=== PATIENT | female | born 1985 | race African-American/Black ===

== ENCOUNTER → 2022-07-19 | Emergency (ER) | payer OTHER ==
[~2022-07-19] VITALS: Ht 172.7 cm; Wt 72.6 kg
== END | disposition home or self-care (01) ==
LOC: ER 07:40
DX: R53.81 Other malaise (principal)

== ENCOUNTER 2022-11-28 11:53 | Emergency (ER) | payer OTHER ==
[~2022-11-28] VITALS: Ht 172.7 cm; Wt 76.2 kg
== END 2022-11-28 17:48 | disposition home or self-care (01) ==
LOC: ER 11:53
DX: J06.9 Acute upper respiratory infection, unspecified (principal); Z20.822 Contact with and (suspected) exposure to COVID-19

== ENCOUNTER 2023-03-24 11:28 | Emergency (ER) | payer OTHER ==
[~2023-03-24] VITALS: Ht 172.7 cm; Wt 79.8 kg
[2023-03-24] MEDS ORDERED: DICLOFENAC SODI75 MG PO (18:09)
[2023-03-24] MEDS ORDERED: NORFLEX100MG PO (18:09)
== END 2023-03-24 20:15 ==
LOC: ER 11:28
DX: M62.830 Muscle spasm of back (principal); M54.50 Low back pain, unspecified

== ENCOUNTER 2024-03-20 06:20 | Day surgery (SDC) | payer OTHER ==
[~2024-03-20 06:20] MED LIST: DICLOFENAC SODI75 MG PO; NORFLEX100MG PO
[2024-03-20] MEDS ORDERED: DIPHENHYDRAMINE HCL 50 MG/ML VIAL 1ML IV ONE (08:30)
[2024-03-20] MEDS ORDERED: fentaNYL CITRATE 50 MCG/ML AMPUL IV PUSH ONE (08:30)
[2024-03-20] MEDS ORDERED: MIDAZOLAM HCL 2 MG/2 ML VIAL IV ONE (08:30)
== END 2024-03-20 10:10 | disposition home or self-care (01) ==
LOC: AMB-ENDOS 06:20
PROVIDERS: ATTEND Colon & Rectal Surgery
DX: K62.5 Hemorrhage of anus and rectum (principal)